=== PATIENT | female | born 1980 | race African-American/Black ===

== ENCOUNTER → 2018-12-05 | Outpatient (CLI) | payer OTHER ==
--- NOTE | 2018-12-05 14:14 | RAD ---
BRAIN W/O CONTRAST Date: 12/05/2018 9:45 AM Indication: Chronic headaches. Vertigo. Shunt. Comparison: 07/14/2009. Technique: Multiplanar multisequence MRI of the brain was performed without intravenous contrast using the standard protocol. Findings: Right frontal approach ventricular shunt catheter terminating in the left lateral ventricle along the septum pellucidum. The ventricles are decompressed, slightly more so on the right. Ventricular configuration is similar to the prior CT head. No acute infarct. No acute or chronic hemorrhage. The scalp and calvarium are normal. The pituitary and sella are normal. No Chiari malformation. The visualized upper cervical spine is normal. The visualized orbits and globes are normal. The visualized paranasal sinuses are clear. The mastoid air cells are clear. Normal flow voids within the vertebral, basilar, and internal carotid arteries indicating patency. IMPRESSION: Right frontal approach ventricular shunt catheter. Ventricles are not dilated. Ventricular configuration is similar to CT of 07/14/2009. Electronically signed by: Chintan Templeton MD (12/05/2018 2:11 PM) [id number]
== END | disposition home or self-care (01) ==
LOC: MRI 09:35
PROVIDERS: ATTEND Psychiatry & Neurology Neurology with Special Qualifications in Child Neurology
DX: G43.719 Chronic migraine without aura, intractable, without status migrainosus (principal); R42 Dizziness and giddiness; Z92.89 Personal history of other medical treatment
CPT/HCPCS: 70551